=== PATIENT | female | born 1955 | race Caucasian/White ===

== ENCOUNTER 2016-12-24 16:01 | Emergency (ER) | payer OTHER ==
[2016-12-24 19:00] LABS: Hematocrit 40 % (35-47); Hemoglobin 13.7 g/dl (12.0-16.0); Mean Corpuscular HGB Conc 34 g/dl (31-36); Mean Corpuscular Hemoglobin 33 pg (27-31); Mean Corpuscular Volume 95 fL (80-97); Mean Platelet Volume 7 um3 (7.4-10.4); Red Blood Count 4.23 10^6/ul (4.0-5.4); Red Cell Distribution Width 14 % (10.5-15); White Blood Count 4.2 10^3/ul (3.5-10.8)
[2016-12-24 19:15] LABS: Albumin 4.2 g/dL (3.2-5.2); BUN/Creatinine Ratio 11.6 (8-20); Calcium 9.5 mg/dL (8.6-10.3); EGFR African American 76.7 (>60); EGFR Non-African American 59.6 (>60); Globulin 2.4 g/dL (2-4); Potassium 3.9 mmol/L (3.5-5.0); Total Bilirubin 0.3 mg/dL (0.2-1.0); Total Protein 6.6 g/dL (6.4-8.9)
--- NOTE | 2016-12-24 19:20 | RAD ---
Indication: Pain under the RIGHT breast radiating laterally to the back; rib pain. Vaginal bleeding. Comparison: August 26, 2015 CT chest. Technique: PA chest and 4 dedicated RIGHT rib views obtained. Report: Elevated lung volumes and both diffuse mild prominence of the interstitial markings and patchy rarefaction of the mid to upper lung zone interstitial markings. Solitary small linear metallic surgical clip or foreign body visualized at the RIGHT lung base corresponding with the anterior basal segment of the RIGHT lower lobe on the 2016 CT without concern. No focal pulmonary lesion, compelling alveolar consolidation, pleural effusion, pneumothorax. The heart, pulmonary vasculature, and mediastinal contours are unremarkable. No RIGHT rib fracture or focal osseous lesion evident. IMPRESSION: Stigmata of obstructive lung disease. No acute pulmonary or cardiac process evident. No RIGHT rib fracture evident.
[2016-12-24 19:43] LABS: Urine Bilirubin Negative (Negative); Urine Glucose Negative (Negative); Urine Nitrite Negative (Negative)
--- NOTE | 2016-12-24 20:18 | ED ---
GI/ HPI - HPI Summary HPI Summary: 61F presents with right side rib pain for a week and vaginal bleeding for 2 days. She has a history of cervical cancer that had chemo and radiation for. had rountine pap smear on . on Tuesday soaked a pad with bleeding during day. yesterday had some spotting. denies any pain. denies any dysuria, frequency. denies any abdominal pain, n/v/d/c. no history of prolapse. lifted a heavy box last week and felt a pop in ribs. denies any SOB. has history of COPD. no chance of STDs. - History of Current Complaint Chief Complaint: EDVaginalBleeding Time Seen by Provider: 12/24/16 18:29 Stated Complaint: RT SIDE RIB PAIN/VAGINAL BLEEDING Pain Intensity: 3 - Allergy/Home Medications Allergies/Adverse Reactions: Allergies Allergy/AdvReac Type Severity Reaction Status Date / Time No Known Allergies Allergy Verified 12/24/16 17:11 PMH/Surg Hx/FS Hx/Imm Hx Endocrine/Hematology History: Denies: Hx Anticoagulant Therapy GI History: Reports: Other GI Disorders - cervical cancer - Cancer History Cancer Type, Location and Year: CERVICAL Hx Chemotherapy: No Hx Radiation Therapy: No - Surgical History Surgery Procedure, Year, and Place: BREAST BIOPSY Infectious Disease History: No Infectious Disease History: Denies: Traveled Outside the [place] in Last 30 Days - Family History Known Family History: Positive: Cardiac Disease - Social History Alcohol Use: None Substance Use Type: Reports: None Smoking Status (MU): Heavy Every Day Tobacco Smoker Review of Systems Negative: Fever Positive: Other - right rib pain Negative: Shortness Of Breath Positive: Other - vaginal bleeding. Negative: Abdominal Pain All Other Systems Reviewed And Are Negative: Yes Physical Exam Triage Information Reviewed: Yes Vital Signs On Initial Exam: Initial Vitals Temp Pulse Resp BP Pulse Ox 98.7 F 88 20 147/86 98 12/24/16 16:11 12/24/16 16:11 12/24/16 16:11 12/24/16 16:11 12/24/16 16:11 Vital Signs Reviewed: Yes Appearance: Positive: Well-Appearing Skin: Positive: Warm, Dry Head/Face: Positive: Normal Head/Face Inspection Eyes: Positive: Normal, EOMI, LOVE, Conjunctiva Clear ENT: Positive: Normal ENT inspection, Pharynx normal, TMs normal Respiratory/Lung Sounds: Positive: Clear to Auscultation, Breath Sounds Present Cardiovascular: Positive: Normal, RRR Abdomen Description: Positive: Nontender, Soft Bowel Sounds: Positive: Present Pelvic Exam: Positive: external exam normal, other - friable tissue vaginal wall with petechia present in vaginal mucosa. no active bleeding. Negative: blood - Ariela Coma Scale Coma Scale Total: 15 Diagnostics - Vital Signs Vital Signs Temp Pulse Resp BP Pulse Ox 12/24/16 19:18 72 117/74 96 12/24/16 19:03 71 97 12/24/16 18:30 78 133/74 97 12/24/16 18:00 73 131/72 96 12/24/16 17:30 72 139/74 95 12/24/16 17:03 98.7 F 72 18 157/86 98 12/24/16 17:00 82 177/84 97 12/24/16 16:59 157/86 12/24/16 16:11 98.7 F 88 20 147/86 98 - Laboratory Lab Results: Lab Results 12/24/16 12/24/16 12/24/16 Range/Units 18:51 18:51 18:51 WBC 4.2 (3.5-10.8) 10^3/ul RBC 4.23 (4.0-5.4) 10^6/ul Hgb 13.7 (12.0-16.0) g/dl Hct 40 (35-47) % MCV 95 (80-97) fL MCH 33 H (27-31) pg MCHC 34 (31-36) g/dl RDW 14 (10.5-15) % Plt Count 241 (150-450) 10^3/ul MPV 7 L (7.4-10.4) um3 Neut % (Auto) 63.3 (38-83) % Lymph % (Auto) 25.8 (25-47) % [place] % (Auto) 8.0 (1-9) % Eos % (Auto) 1.7 (0-6) % Baso % (Auto) 1.2 (0-2) % Absolute Neuts (auto) 2.6 (1.5-7.7) 10^3/ul Absolute Lymphs (auto) 1.1 (1.0-4.8) 10^3/ul Absolute Monos (auto) 0.3 (0-0.8) 10^3/ul Absolute Eos (auto) 0.1 (0-0.6) 10^3/ul Absolute Basos (auto) 0.1 (0-0.2) 10^3/ul Absolute Nucleated RBC 0.01 10^3/ul Nucleated RBC % 0.2 INR (Anticoag Therapy) 0.91 (0.89-1.11) APTT 25.8 L (26.0-36.3) seconds Sodium 140 (133-145) mmol/L Potassium 3.9 (3.5-5.0) mmol/L Chloride 107 (101-111) mmol/L Carbon Dioxide 27 (22-32) mmol/L Anion Gap 6 (2-11) mmol/L BUN 11 (6-24) mg/dL Creatinine 0.95 (0.51-0.95) mg/dL Est GFR ( Amer) 76.7 (>60) Est GFR (Non-Af Amer) 59.6 (>60) BUN/Creatinine Ratio 11.6 (8-20) Glucose 105 H (70-100) mg/dL Calcium 9.5 (8.6-10.3) mg/dL Total Bilirubin 0.30 (0.2-1.0) mg/dL AST 14 (13-39) U/L ALT 9 (7-52) U/L Alkaline Phosphatase 68 (34-104) U/L Total Protein 6.6 (6.4-8.9) g/dL Albumin 4.2 (3.2-5.2) g/dL Globulin 2.4 (2-4) g/dL Albumin/Globulin Ratio 1.8 (1-3) Urine Color Urine Appearance Urine pH (5-9) Ur Specific [place] (1.010-1.030) Urine Protein (Negative) Urine Ketones (Negative) Urine Blood (Negative) Urine Nitrate (Negative) Urine Bilirubin (Negative) Urine Urobilinogen (Negative) Ur Leukocyte Esterase (Negative) Urine Glucose (Negative) 12/24/16 Range/Units 19:30 WBC (3.5-10.8) 10^3/ul RBC (4.0-5.4) 10^6/ul Hgb (12.0-16.0) g/dl Hct (35-47) % MCV (80-97) fL MCH (27-31) pg MCHC (31-36) g/dl RDW (10.5-15) % Plt Count (150-450) 10^3/ul MPV (7.4-10.4) um3 Neut % (Auto) (38-83) % Lymph % (Auto) (25-47) % [place] % (Auto) (1-9) % Eos % (Auto) (0-6) % Baso % (Auto) (0-2) % Absolute Neuts (auto) (1.5-7.7) 10^3/ul Absolute Lymphs (auto) (1.0-4.8) 10^3/ul Absolute Monos (auto) (0-0.8) 10^3/ul Absolute Eos (auto) (0-0.6) 10^3/ul Absolute Basos (auto) (0-0.2) 10^3/ul Absolute Nucleated RBC 10^3/ul Nucleated RBC % INR (Anticoag Therapy) (0.89-1.11) APTT (26.0-36.3) seconds Sodium (133-145) mmol/L Potassium (3.5-5.0) mmol/L Chloride (101-111) mmol/L Carbon Dioxide (22-32) mmol/L Anion Gap (2-11) mmol/L BUN (6-24) mg/dL Creatinine (0.51-0.95) mg/dL Est GFR ( Amer) (>60) Est GFR (Non-Af Amer) (>60) BUN/Creatinine Ratio (8-20) Glucose (70-100) mg/dL Calcium (8.6-10.3) mg/dL Total Bilirubin (0.2-1.0) mg/dL AST (13-39) U/L ALT (7-52) U/L Alkaline Phosphatase (34-104) U/L Total Protein (6.4-8.9) g/dL Albumin (3.2-5.2) g/dL Globulin (2-4) g/dL Albumin/Globulin Ratio (1-3) Urine Color Straw Urine Appearance Clear Urine pH 7.0 (5-9) Ur Specific [place] 1.004 L (1.010-1.030) Urine Protein Negative (Negative) Urine Ketones Negative (Negative) Urine Blood Negative (Negative) Urine Nitrate Negative (Negative) Urine Bilirubin Negative (Negative) Urine Urobilinogen Negative (Negative) Ur Leukocyte Esterase Negative (Negative) Urine Glucose Negative (Negative) Result Diagrams: 12/24/16 18:51 12/24/16 18:51 Lab Statement: Any lab studies that have been ordered have been reviewed, and results considered in the medical decision making process. - Radiology rib Xray Interpretation: No Acute Changes Radiology Interpretation Completed By: Radiologist SUSANNE Course/Dx - Course Course Of Treatment: 61F presents with right side rib pain for a week and vaginal bleeding for 2 days. She has a history of cervical cancer that had chemo and radiation for. had rountine pap smear on . on Tuesday soaked a pad with bleeding during day. yesterday had some spotting. denies any pain. denies any dysuria, frequency. denies any abdominal pain, n/v/d/c. no history of prolapse. lifted a heavy box last week and felt a pop in ribs. denies any SOB. has history of COPD. on exam tender over ribs 10-12. xray normal. vaginal exam friable vaginal tissue with small petechiae present with no active bleeding. labs h/h normal. patient understands and agrees with plan. - Diagnoses Differential Diagnoses - Female: Vaginitis, Other - rib contusion, fracture Provider Diagnoses: Rib pain on right side, Vaginal bleeding Discharge - Discharge Plan Condition: Good Disposition: HOME Referrals: Trell Baeza MD [Primary Care Provider] - Additional Instructions: Take Tylenol every [address] ice on ribs Follow up with clinical material handler Return to ED if develop any new or worsening symptoms
[2016-12-24 20:30] VITALS: BP 135/78
== END 2016-12-24 20:30 | disposition home or self-care (01) ==
LOC: ED 16:01
DX: R07.81 Pleurodynia (principal); N93.9 Abnormal uterine and vaginal bleeding, unspecified; Z72.0 Tobacco use; X50.0XXA Overexertion from strenuous movement or load, initial encounter; Y92.9 Unspecified place or not applicable; Z85.41 Personal history of malignant neoplasm of cervix uteri; Z92.21 Personal history of antineoplastic chemotherapy; Z92.3 Personal history of irradiation; J44.9 Chronic obstructive pulmonary disease, unspecified; Z82.49 Family history of ischemic heart disease and other diseases of the circulatory system
CPT/HCPCS: 36415; 80053; 81003; 85025; 85610; 85730; 99283

== ENCOUNTER 2017-02-06 11:14 | Emergency (ER) | payer SELFPAY ==
--- NOTE | 2017-02-06 13:04 | RAD ---
Indication: LEFT hip pain and tingling down the LEFT leg. Comparison: April 01, 2014 CT. Technique: AP pelvis and AP and frog-leg lateral views LEFT hip. Report: The LEFT hip is normally located and demonstrates preserved joint space. No LEFT proximal femur or pelvis fracture or pelvic joint diastases. Mild osteophytosis and subchondral sclerosis at the pubic symphysis. No suspicious focal osseous lesions evident. Mild peripheral vascular calcifications at the pelvis. Unremarkable soft tissue contours. IMPRESSION: No radiographic abnormality of the LEFT hip.
[2017-02-06 13:33] VITALS: BP 128/72
--- NOTE | 2017-02-06 17:35 | ED ---
Apryl Anderson SooYoung, scribed for Charles Guthrie MD on 02/06/17 at 1215 . Lower Extremity - HPI Summary HPI Summary: A 70 y/o F presents to ED with c/o LLE pain onset [employer]. Pt was at work at onset of L hip pain. Pain rated as 0 out of 10 at bedside. She took 4 Ibuprofen to mild relief prior to arrival. Pt also states getting leg cramps at night. 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 Onset/Duration: Still Present Severity Initially: Moderate Severity Currently: Mild Pain Intensity: 2 Pain Scale Used: 0-10 Numeric Timing: Constant Location: Is Discrete @ - L hip Alleviating Factor(s): OTC Meds - Allergies/Home Medications Allergies/Adverse Reactions: Allergies Allergy/AdvReac Type Severity Reaction Status Date / Time No Known Allergies Allergy Verified 12/24/16 17:11 PMH/Surg Hx/FS Hx/Imm Hx Previously Healthy: No Endocrine/Hematology History: Denies: Hx Anticoagulant Therapy GI History: Reports: Other GI Disorders - cervical cancer - Cancer History Cancer Type, Location and Year: CERVICAL Hx Chemotherapy: No Hx Radiation Therapy: No - Surgical History Surgery Procedure, Year, and Place: BREAST BIOPSY Infectious Disease History: No Infectious Disease History: Denies: Traveled Outside the [place] in Last 30 Days - Family History Known Family History: Positive: Cardiac Disease, Other - neg: breast CA - Social History Occupation: Unemployed - [employer] Lives: Alone Alcohol Use: None Hx Substance Use: No Substance Use Type: Reports: None Hx Tobacco Use: Yes Smoking Status (MU): Heavy Every Day Tobacco Smoker Review of Systems Negative: Fever Positive: Arthralgia - L hip pain All Other Systems Reviewed And Are Negative: Yes Physical Exam - Summary Physical Exam Summary: VITAL SIGNS: Reviewed. GENERAL: Patient is a well-developed and nourished FEMALE who is lying comfortable in the stretcher. Patient is not in any acute respiratory distress. HEAD AND FACE: No signs of trauma. No ecchymosis, hematomas or skull depressions. No sinus tenderness. EYES: PERRLA, EOMI x 2, No injected conjunctiva, no nystagmus. EARS: Hearing grossly intact. Ear canals and tympanic membranes are within normal limits. MOUTH: Oropharynx within normal limits. NECK: Supple, trachea is midline, no adenopathy, no JVD, no carotid bruit, no c- spine tenderness, neck with full ROM. CHEST: Symmetric, no tenderness at palpation LUNGS: Clear to auscultation bilaterally. No wheezing or crackles. CVS: Regular rate and rhythm, S1 and S2 present, no murmurs or gallops appreciated. ABDOMEN: Soft, non-tender. No signs of distention. No rebound, no guarding, and no masses palpated. Bowel sounds are normal. EXTREMITIES: FROM in all major joints, no edema, no cyanosis or clubbing. NEURO: Alert and oriented x 3. No acute neurological deficits. Speech is normal and follows commands. SKIN: Dry and warm Triage Information Reviewed: Yes Vital Signs On Initial Exam: Initial Vitals Temp Pulse Resp BP Pulse Ox 97.8 F 86 18 139/80 98 02/06/17 11:31 02/06/17 11:31 02/06/17 11:31 02/06/17 11:31 02/06/17 11:31 Vital Signs Reviewed: Yes Diagnostics - Vital Signs Vital Signs Temp Pulse Resp BP Pulse Ox 02/06/17 11:31 97.8 F 86 18 139/80 98 - Laboratory Lab Statement: Any lab studies that have been ordered have been reviewed, and results considered in the medical decision making process. - Radiology L HIP XR Xray Interpretation: No Acute Changes - No radiographic abnormality of L hip. ED physician has reviewed this radiology report and agrees. Radiology Interpretation Completed By: Radiologist Re-Evaluation - Re-Evaluation 1 Re-Evaluation Time: 13:29 Change: Improved Comment: Pt is ambulating, pain is resolved. Lower Extremity Course/Dx - Course Course Of Treatment: A 70 y/o F presents to ED with c/o LLE pain onset [employer]. Pt was at work at onset of L hip pain. Pain rated as 0 out of 10 at bedside. She took 4 Ibuprofen to mild relief prior to arrival. Pt also states getting leg cramps at night. Hip XR is negative. After taking Ibuprofen, pt is asymptomatic. I believe pt has arthritis with bursitis, therefore, will D/C home to f/u with PCP. Hemodynamically stable and A&Ox3. I discussed all the findings and test results with the patient. Patient was instructed to return to the emergency room immediately if any of the symptoms return or worsens. Plan of care was discussed with the patient and understands and agrees. All questions were answered at patient satisfaction. There were no further complaints or concerns. - Diagnoses Differential Diagnosis/HQI/PQRI: Positive: Arthritis, Bursitis, Fracture (Closed ), Sprain, Strain Provider Diagnoses: Left hip pain Discharge - Discharge Plan Condition: Stable Disposition: HOME Prescriptions: Naproxen TAB* [Naprosyn 250 mg TAB*] 500 mg PO Q8H PRN #220 tab PRN Reason: Pain Patient Education Materials: Hip Pain (ED), Naproxen (By mouth) Referrals: Trell Baeza MD [Primary Care Provider] - 2 Days Additional Instructions: Follow up with your primary care provider in 2 days. Please return to the ED if you experience new or worsening symptoms. The documentation as recorded by the Apryl gonzales SooYoung accurately reflects the service I personally performed and the decisions made by me, Charles Guthrie MD.
== END 2017-02-06 13:32 | disposition home or self-care (01) ==
LOC: ED 11:14
DX: M25.552 Pain in left hip (principal); F17.210 Nicotine dependence, cigarettes, uncomplicated; Z85.41 Personal history of malignant neoplasm of cervix uteri
CPT/HCPCS: 99282

== ENCOUNTER 2017-03-30 07:30 | Emergency (ER) | payer OTHER ==
[2017-03-30 09:00] LABS: Hematocrit 44 % (35-47); Hemoglobin 14.9 g/dl (12.0-16.0); Mean Corpuscular HGB Conc 34 g/dl (31-36); Mean Corpuscular Hemoglobin 33 pg (27-31); Mean Corpuscular Volume 97 fL (80-97); Mean Platelet Volume 6 um3 (7.4-10.4); Red Blood Count 4.56 10^6/ul (4.0-5.4); Red Cell Distribution Width 14 % (10.5-15); White Blood Count 4.1 10^3/ul (3.5-10.8)
[2017-03-30 09:07] LABS: Urine Bacteria 1+ (Absent); Urine Bilirubin Negative (Negative); Urine Glucose Negative (Negative); Urine Nitrite Negative (Negative)
[2017-03-30 09:16] LABS: Albumin 4.3 g/dL (3.2-5.2); BUN/Creatinine Ratio 16.5 (8-20); C Reactive Protein 3.15 mg/L (< 5.00); Calcium 9.9 mg/dL (8.6-10.3); EGFR African American 87.2 (>60); EGFR Non-African American 67.8 (>60); Globulin 2.6 g/dL (2-4); Potassium 4.2 mmol/L (3.5-5.0); Total Bilirubin 0.5 mg/dL (0.2-1.0); Total Protein 6.9 g/dL (6.4-8.9)
--- NOTE | 2017-03-30 10:44 | RAD ---
Indication: Hematuria. Real-time sonography of the kidneys was performed. The right kidney measures 9.9 x 4.2 x 4.9 cm. The left kidney measures 9.5 x 5.3 x 4.5 cm. No hydronephrosis in either kidney is noted. No focal masses are noted. Incidentally noted is cholelithiasis. IMPRESSION: No hydronephrosis in either kidney.
--- NOTE | 2017-03-30 10:45 | RAD ---
Indication: Vaginal bleeding. History of cervical cancer. Real-time sonography of the pelvis was performed. The uterus measures 3.6 x 3.0 x 4.0 cm. Heterogeneous echotexture is noted. Endometrial echo measures 4 mm. The right ovary measures 15 x 10 x 8 mm. Left ovary measures 15 x 11 x 15 mm. Free fluid is noted surrounding the left ovary. IMPRESSION: Heterogeneous echotexture. Free fluid surrounds the left adnexa.
--- NOTE | 2017-03-30 12:05 | ED ---
Ruthann Anderson Edward, scribed for Hugo Baptiste MD on 03/30/17 at 0739 . GI/ HPI - HPI Summary HPI Summary: 61 y/o female presents to the ED c/o vaginal bleeding starting yesterday. Last night the pt c/o spotting. This morning the pt tried to urinate and long, skinny clots of blood came out. Symptoms not aggravated or alleviated with anything. Associated sx: suprapubic cramping. Denies fevers/chills. PMHx cervical cancer (2 years ago), treated with chemo. - History of Current Complaint Stated Complaint: BLOOD IN URINE, VAG BLEEDING Hx Obtained From: Patient Onset/Duration: Started Days Ago Timing: Intermittent Location of Pain: Suprapubic Pain Characteristics: Cramping Associated Signs and Symptoms: Positive: Other: - vaginal bleeding - Allergy/Home Medications Allergies/Adverse Reactions: Allergies Allergy/AdvReac Type Severity Reaction Status Date / Time No Known Allergies Allergy Verified 12/24/16 17:11 Home Medications: Home Medications Cyclobenzaprine TAB* [Flexeril 10 MG TAB*] 5 mg PO Q8HR PRN 03/30/17 [History Confirmed 03/30/17] Cyclobenzaprine TAB* [Flexeril 10 MG TAB*] 10 mg PO BEDTIME PRN 03/30/17 [ History Confirmed 03/30/17] Ibuprofen TAB* [Advil TAB*] 1,000 mg PO QAM 03/30/17 [History Confirmed 03/30/17 ] PMH/Surg Hx/FS Hx/Imm Hx Previously Healthy: No Endocrine/Hematology History: Denies: Hx Anticoagulant Therapy GI History: Reports: Other GI Disorders - cervical cancer - Cancer History Cancer Type, Location and Year: CERVICAL Hx Chemotherapy: No Hx Radiation Therapy: No - Surgical History Surgery Procedure, Year, and Place: BREAST BIOPSY - Family History Known Family History: Positive: Cardiac Disease, Other - neg: breast CA - Social History Alcohol Use: None Hx Substance Use: No Substance Use Type: Reports: None Hx Tobacco Use: Yes Smoking Status (MU): Heavy Every Day Tobacco Smoker Review of Systems Constitutional: Negative Eyes: Negative ENT: Negative Cardiovascular: Negative Respiratory: Negative Gastrointestinal: Negative Positive: other - cramping, spotting Musculoskeletal: Negative Skin: Negative Neurological: Negative Psychological: Normal All Other Systems Reviewed And Are Negative: Yes Physical Exam - Summary Physical Exam Summary: Pelvic exam: Vaginal mucosa near the cervix is friable, with small amounts of dark blood. No active bleeding. No blood from the os. Nontender Triage Information Reviewed: Yes Vital Signs On Initial Exam: Initial Vitals Temp Pulse Resp BP Pulse Ox 98.6 F 105 19 117/102 94 03/30/17 07:32 03/30/17 07:32 03/30/17 07:32 03/30/17 07:32 03/30/17 07:32 Vital Signs Reviewed: Yes Appearance: Positive: Well-Appearing, No Pain Distress Skin: Positive: Warm, Skin Color Reflects Adequate Perfusion, Dry Head/Face: Positive: Normal Head/Face Inspection Eyes: Positive: EOMI, LOVE ENT: Positive: Normal ENT inspection Neck: Positive: Supple, Nontender Respiratory/Lung Sounds: Positive: Clear to Auscultation, Breath Sounds Present Cardiovascular: Positive: RRR Abdomen Description: Positive: Nontender, Soft Bowel Sounds: Positive: Present Musculoskeletal: Positive: Normal, Strength/ROM Intact Neurological: Positive: Normal, Sensory/Motor Intact, Alert, Oriented to Person Place, Time Psychiatric: Positive: Affect/Mood Appropriate Diagnostics - Vital Signs Vital Signs Temp Pulse Resp BP Pulse Ox 03/30/17 07:32 98.6 F 105 19 117/102 94 - Laboratory Lab Results: Lab Results 03/30/17 03/30/17 03/30/17 Range/Units 08:25 08:50 08:50 WBC (3.5-10.8) 10^3/ul RBC (4.0-5.4) 10^6/ul Hgb (12.0-16.0) g/dl Hct (35-47) % MCV (80-97) fL MCH (27-31) pg MCHC (31-36) g/dl RDW (10.5-15) % Plt Count (150-450) 10^3/ul MPV (7.4-10.4) um3 Neut % (Auto) (38-83) % Lymph % (Auto) (25-47) % [place] % (Auto) (1-9) % Eos % (Auto) (0-6) % Baso % (Auto) (0-2) % Absolute Neuts (auto) (1.5-7.7) 10^3/ul Absolute Lymphs (auto) (1.0-4.8) 10^3/ul Absolute Monos (auto) (0-0.8) 10^3/ul Absolute Eos (auto) (0-0.6) 10^3/ul Absolute Basos (auto) (0-0.2) 10^3/ul Absolute Nucleated RBC 10^3/ul Nucleated RBC % INR (Anticoag Therapy) 0.90 (0.77-1.02) APTT 26.1 (26.0-36.3) seconds Sodium 139 (133-145) mmol/L Potassium 4.2 (3.5-5.0) mmol/L Chloride 109 (101-111) mmol/L Carbon Dioxide 24 (22-32) mmol/L Anion Gap 6 (2-11) mmol/L BUN 14 (6-24) mg/dL Creatinine 0.85 (0.51-0.95) mg/dL Est GFR ( Amer) 87.2 (>60) Est GFR (Non-Af Amer) 67.8 (>60) BUN/Creatinine Ratio 16.5 (8-20) Glucose 88 (70-100) mg/dL Calcium 9.9 (8.6-10.3) mg/dL Total Bilirubin 0.50 (0.2-1.0) mg/dL AST 17 (13-39) U/L ALT 11 (7-52) U/L Alkaline Phosphatase 72 (34-104) U/L C-Reactive Protein 3.15 (< 5.00) mg/L Total Protein 6.9 (6.4-8.9) g/dL Albumin 4.3 (3.2-5.2) g/dL Globulin 2.6 (2-4) g/dL Albumin/Globulin Ratio 1.7 (1-3) Urine Color Yellow Urine Appearance Cloudy Urine pH 6.0 (5-9) Ur Specific [place] 1.008 L (1.010-1.030) Urine Protein 1+(30 mg/dl) H (Negative) Urine Ketones Negative (Negative) Urine Blood 3+ H (Negative) Urine Nitrate Negative (Negative) Urine Bilirubin Negative (Negative) Urine Urobilinogen Negative (Negative) Ur Leukocyte Esterase Negative (Negative) Urine WBC (Auto) Trace(0-5/hpf) (Absent) Urine RBC (Auto) 3+(>10/hpf) H (Absent) Ur Squamous Epith Cells Present H (Absent) Urine Bacteria 1+ H (Absent) Urine Glucose Negative (Negative) 03/30/17 Range/Units 08:50 WBC 4.1 (3.5-10.8) 10^3/ul RBC 4.56 (4.0-5.4) 10^6/ul Hgb 14.9 (12.0-16.0) g/dl Hct 44 (35-47) % MCV 97 (80-97) fL MCH 33 H (27-31) pg MCHC 34 (31-36) g/dl RDW 14 (10.5-15) % Plt Count 245 (150-450) 10^3/ul MPV 6 L (7.4-10.4) um3 Neut % (Auto) 71.7 (38-83) % Lymph % (Auto) 18.5 L (25-47) % [place] % (Auto) 7.1 (1-9) % Eos % (Auto) 1.7 (0-6) % Baso % (Auto) 1.0 (0-2) % Absolute Neuts (auto) 2.9 (1.5-7.7) 10^3/ul Absolute Lymphs (auto) 0.8 L (1.0-4.8) 10^3/ul Absolute Monos (auto) 0.3 (0-0.8) 10^3/ul Absolute Eos (auto) 0.1 (0-0.6) 10^3/ul Absolute Basos (auto) 0 (0-0.2) 10^3/ul Absolute Nucleated RBC 0 10^3/ul Nucleated RBC % 0 INR (Anticoag Therapy) (0.77-1.02) APTT (26.0-36.3) seconds Sodium (133-145) mmol/L Potassium (3.5-5.0) mmol/L Chloride (101-111) mmol/L Carbon Dioxide (22-32) mmol/L Anion Gap (2-11) mmol/L BUN (6-24) mg/dL Creatinine (0.51-0.95) mg/dL Est GFR ( Amer) (>60) Est GFR (Non-Af Amer) (>60) BUN/Creatinine Ratio (8-20) Glucose (70-100) mg/dL Calcium (8.6-10.3) mg/dL Total Bilirubin (0.2-1.0) mg/dL AST (13-39) U/L ALT (7-52) U/L Alkaline Phosphatase (34-104) U/L C-Reactive Protein (< 5.00) mg/L Total Protein (6.4-8.9) g/dL Albumin (3.2-5.2) g/dL Globulin (2-4) g/dL Albumin/Globulin Ratio (1-3) Urine Color Urine Appearance Urine pH (5-9) Ur Specific [place] (1.010-1.030) Urine Protein (Negative) Urine Ketones (Negative) Urine Blood (Negative) Urine Nitrate (Negative) Urine Bilirubin (Negative) Urine Urobilinogen (Negative) Ur Leukocyte Esterase (Negative) Urine WBC (Auto) (Absent) Urine RBC (Auto) (Absent) Ur Squamous Epith Cells (Absent) Urine Bacteria (Absent) Urine Glucose (Negative) Result Diagrams: 03/30/17 08:50 03/30/17 08:50 Lab Statement: Any lab studies that have been ordered have been reviewed, and results considered in the medical decision making process. - Ultrasound No standard instances Ultrasound Interpretation: No Acute Changes - ABD/BLADDER US - No hydronephrosis in either kidney. Ultrasound Interpretation Completed By: Radiologist - ED PHYSICIAN REVIEWS AND AGREES - Additional Comments Diagnostic Additional Comments: TRANSVAGINAL US - Heterogeneous echotexture. Free fluid surrounds the left adnexa. GIGU Course/Dx - Course Course Of Treatment: THE U/S DISCUSSED WITH RADIOLOGY; THE FLUID DOES NOT APPEAR TO BE BLOOD. WILL TREAT THE HEMATURIA A POSSIBLE SOURCE OF THE BLOOD. WILL NEED PMD F/U TO ENSURE URINE CLEARS OF BLOOD TO DETERMINE IF SHE NEEDS FURTHER HEMATURIA WORK UP. THE SOURCE OF THE BLOOD IS POSSIBLY THE FRIABLE MUCOSA NEAR THE CERVIX. THERE IS NO ACTIVE BLEEDING. PATIENT DENIES PAIN. SHE WILL F/U WITH HER CANCER PHYSICIAN, DR DICKEY. RETURN TO ED IF WORSE. - Diagnoses Provider Diagnoses: Abnormal vaginal bleeding, Hematuria Discharge - Discharge Plan Condition: Stable Disposition: HOME Prescriptions: Sulfamethox/Trimethoprim DS* [Bactrim DS 800/160 TAB*] 1 tab PO BID #14 tab Patient Education Materials: Hematuria (ED) Referrals: Trell Baeza MD [Primary Care Provider] - Additional Instructions: FOLLOW UP WITH YOUR PRIMARY CARE DOCTOR AND DR DICKEY FOR YOUR VAGINAL BLEEDING AND BLOOD IN YOUR URINE. THERE WAS SOME FRIABLE VAGINAL MUCOSA NEAR YOUR CERVIX WHICH MAY BE THE CAUSE OF THE BLEEDING. THERE WAS NO ACTIVE BLEEDING SEEN ON EXAM. RETURN TO THE EMERGENCY DEPARTMENT FOR ANY WORSENING OF YOUR CONDITION; EXCESSIVE BLEEDING, FEVER, YOU FEEL ILL, YOU FEEL LIGHTHEADED, PAIN OR QUESTIONS OR CONCERNS. The documentation as recorded by the Ruthann gonzales Edward accurately reflects the service I personally performed and the decisions made by me, Hugo Baptiste MD.
[2017-03-30 12:24] VITALS: BP 114/96
== END 2017-03-30 12:23 | disposition home or self-care (01) ==
LOC: ED 07:30
DX: N93.9 Abnormal uterine and vaginal bleeding, unspecified (principal); R31.9 Hematuria, unspecified; Z85.41 Personal history of malignant neoplasm of cervix uteri; F17.210 Nicotine dependence, cigarettes, uncomplicated
CPT/HCPCS: 36415; 76770; 76830; 80053; 81003; 81015; 85025; 85610; 85730; 86140; 87086; 99283

== ENCOUNTER 2017-04-05 09:19 | Emergency (ER) | payer OTHER ==
[2017-04-05] MEDS ORDERED: Ondansetron INJ* 2 MG/ML VIAL IV ONE (09:44)
[2017-04-05] MEDS ORDERED: NS 0.9% 1000 ML* 1,000 ML IV ONE ×2 (09:44→11:40)
[2017-04-05] MEDS ORDERED: Ketorolac INJ* 30 MG/ML 1 ML VIAL IV ONE (09:44)
[2017-04-05 10:12] LABS: Hematocrit 42 % (35-47); Hemoglobin 14.2 g/dl (12.0-16.0); Mean Corpuscular HGB Conc 34 g/dl (31-36); Mean Corpuscular Hemoglobin 33 pg (27-31); Mean Corpuscular Volume 97 fL (80-97); Mean Platelet Volume 7 um3 (7.4-10.4); Red Blood Count 4.31 10^6/ul (4.0-5.4); Red Cell Distribution Width 14 % (10.5-15); White Blood Count 7.2 10^3/ul (3.5-10.8)
[2017-04-05 10:24] LABS: Albumin 4.4 g/dL (3.2-5.2); BUN/Creatinine Ratio 13.8 (8-20); C Reactive Protein 3.72 mg/L (< 5.00); Calcium 9.7 mg/dL (8.6-10.3); EGFR African American 56.9 (>60); EGFR Non-African American 44.2 (>60); Globulin 2.6 g/dL (2-4); Total Bilirubin 0.4 mg/dL (0.2-1.0)
[2017-04-05] MEDS ORDERED: Orphenadrine Citrate IV* 30 MG/ML 2 ML VIAL IV ONE (10:54)
--- NOTE | 2017-04-05 10:54 | ED ---
Nausea/Vomiting/Diarrhea HPI - HPI Summary HPI Summary: 61 female presents to ED with complaints of nausea, vomiting/dry heaves and diarrhea that began this morning around 5am. States she vomited once, has not vomited since. Denies blood. Seen last week diagnosed with dyruria/uti and treated with bactrim. Those symptoms have since improved. Denies fever/chills, recent travel and take out food. Patient states she was taking aleve and ibuprofen for her leg pain intermittently. States leg pain has been ongoing for the past month, diagnosed with sciatica given muscle relaxer and had relief however it only used to be in right side and now it is bilateral. Has been out of muscle relaxer. Patient is able to walk and bear weight however she can not walk long distances without pain. Denies chest pain/sob. No urinary or genitalia symptoms. States she has a dull aching cramping pain in abdomen diffusely. PMHx significant for cervical cancer. Denies fever/chills, back pain. No other complaints. Denies coughing and congestion. no injury or trauma. - History of Current Complaint Chief Complaint: EDNauseaVomitDiarrh Stated Complaint: V/D/HIP PAIN Time Seen by Provider: 04/05/17 09:36 Hx Obtained From: Patient Onset/Duration: Sudden Onset, Lasting Hours, Still Present Severity Initially: Moderate Severity Currently: Mild Pain Intensity: 1 Pain Scale Used: 0-10 Numeric Location: Diffuse - abdomen Character: Cramping Aggravating Factor(s): Nothing Nausea/Vomiting Presence: Nauseated, Vomiting - x1, dry heaves since Nausea/Vomiting Duration: 0-12 hours Vomiting Characteristics: Retching, Bilious Diarrhea Presence: Yes Diarrhea Frequency: Every 3-4 hours Diarrhea Duration: 0-12 hours Diarrhea Characteristics: Watery - Allergies/Home Medications Allergies/Adverse Reactions: Allergies Allergy/AdvReac Type Severity Reaction Status Date / Time No Known Allergies Allergy Verified 04/05/17 09:44 PMH/Surg Hx/FS Hx/Imm Hx Endocrine/Hematology History: Denies: Hx Anticoagulant Therapy Cardiovascular History: Denies: Hx Hypertension Respiratory History: Denies: Hx Asthma GI History: Reports: Other GI Disorders - cervical cancer - Cancer History Cancer Type, Location and Year: CERVICAL Hx Chemotherapy: No Hx Radiation Therapy: No - Surgical History Surgery Procedure, Year, and Place: BREAST BIOPSY - Immunization History Immunizations Up to Date: Yes Infectious Disease History: No Infectious Disease History: Denies: Traveled Outside the [place] in Last 30 Days - Family History Known Family History: Positive: Cardiac Disease, Other - neg: breast CA - Social History Alcohol Use: None Hx Substance Use: No Substance Use Type: Reports: None Hx Tobacco Use: Yes Smoking Status (MU): Heavy Every Day Tobacco Smoker Review of Systems Constitutional: Negative Cardiovascular: Negative Respiratory: Negative Positive: Abdominal Pain, Vomiting, Diarrhea, Nausea Positive: Arthralgia, Myalgia - bilateral legs Neurological: Negative All Other Systems Reviewed And Are Negative: Yes Physical Exam Triage Information Reviewed: Yes Vital Signs On Initial Exam: Initial Vitals Temp Pulse Resp BP Pulse Ox 97.7 F 110 20 133/102 100 04/05/17 09:30 04/05/17 09:30 04/05/17 09:30 04/05/17 09:30 04/05/17 09:30 tachycardia noted HR improved to 79 and BP 135/71 Vital Signs Reviewed: Yes Appearance: Positive: Well-Appearing, No Pain Distress, Well-Nourished Skin: Positive: Warm, Skin Color Reflects Adequate Perfusion, Dry. Negative: Cold, Cyanosis @, Diaphoretic, Jaundiced, Erythema @ Head/Face: Positive: Normal Head/Face Inspection Eyes: Positive: Conjunctiva Clear ENT: Positive: Hearing grossly normal, Pharynx normal, TMs normal Neck: Positive: Supple, Nontender Respiratory/Lung Sounds: Positive: Clear to Auscultation, Breath Sounds Present. Negative: Rales, Rhonchi, Wheezes Cardiovascular: Positive: Normal, RRR, Pulses are Symmetrical in both Upper and Lower Extremities. Negative: Murmur, Rub Abdomen Description: Positive: Nontender, No Organomegaly, Soft. Negative: CVA Tenderness (R), CVA Tenderness (L), Distended, Guarding, McBur[place]'s Point Tenderness, Peritoneal Signs Bowel Sounds: Positive: Present, Hyperactive Musculoskeletal: Positive: Normal, Strength/ROM Intact, Pain @ - with movement of bl legs starting in hips/thighs, sore to palpation. Negative: Limited @, Interruption @ Neurological: Positive: Normal, Sensory/Motor Intact, Alert, Oriented to Person Place, Time, Reflexes Intact, NV Bundle Intact Distally, Normal Gait - [place] Coma Scale Coma Scale Total: 15 Diagnostics - Vital Signs Vital Signs Temp Pulse Resp BP Pulse Ox 04/05/17 09:30 97.7 F 110 20 133/102 100 - Laboratory Lab Results: Lab Results 04/05/17 04/05/17 04/05/17 Range/Units 09:53 09:53 09:53 WBC 7.2 (3.5-10.8) 10^3/ul RBC 4.31 (4.0-5.4) 10^6/ul Hgb 14.2 (12.0-16.0) g/dl Hct 42 (35-47) % MCV 97 (80-97) fL MCH 33 H (27-31) pg MCHC 34 (31-36) g/dl RDW 14 (10.5-15) % Plt Count 291 (150-450) 10^3/ul MPV 7 L (7.4-10.4) um3 Neut % (Auto) 84.3 H (38-83) % Lymph % (Auto) 7.8 L (25-47) % [place] % (Auto) 6.6 (1-9) % Eos % (Auto) 0.7 (0-6) % Baso % (Auto) 0.6 (0-2) % Absolute Neuts (auto) 6.1 (1.5-7.7) 10^3/ul Absolute Lymphs (auto) 0.6 L (1.0-4.8) 10^3/ul Absolute Monos (auto) 0.5 (0-0.8) 10^3/ul Absolute Eos (auto) 0 (0-0.6) 10^3/ul Absolute Basos (auto) 0 (0-0.2) 10^3/ul Absolute Nucleated RBC 0 10^3/ul Nucleated RBC % 0 Sodium 134 (133-145) mmol/L Potassium Pending Chloride 102 (101-111) mmol/L Carbon Dioxide 25 (22-32) mmol/L Anion Gap Pending BUN 17 (6-24) mg/dL Creatinine 1.23 H (0.51-0.95) mg/dL Est GFR ( Amer) 56.9 (>60) Est GFR (Non-Af Amer) 44.2 (>60) BUN/Creatinine Ratio 13.8 (8-20) Glucose 95 (70-100) mg/dL Lactic Acid 1.5 (0.5-2.0) mmol/L Calcium 9.7 (8.6-10.3) mg/dL Magnesium Pending Total Bilirubin 0.40 (0.2-1.0) mg/dL AST Pending ALT 12 (7-52) U/L Alkaline Phosphatase 73 (34-104) U/L C-Reactive Protein 3.72 (< 5.00) mg/L Total Protein 7.0 (6.4-8.9) g/dL Albumin 4.4 (3.2-5.2) g/dL Globulin 2.6 (2-4) g/dL Albumin/Globulin Ratio 1.7 (1-3) Lipase 21 (11.0-82.0) U/L Result Diagrams: 04/05/17 09:53 04/05/17 09:53 Lab Statement: Any lab studies that have been ordered have been reviewed, and results considered in the medical decision making process. - Radiology hips/pelvis Xray Interpretation: No Acute Changes Radiology Interpretation Completed By: Radiologist - and myself Re-Evaluation - Re-Evaluation First Eval Re-Evaluation Time: 11:30 Change: Improved - feeling better after medication Second Eval Re-Evaluation Time: 12:25 Change: Improved - feeling much better, ate applesauce. no other complaints. asymptomatic. updated on all labs and imaging results. educated and understands. will be d/c Naus/Vom/Diarrhea Course/Dx - Course Course Of Treatment: labs obtained and unremarkable other than elevated Cr and potassium. Mg slightly low and replaced while in ED, oral medication. was on telemetry and normal vitals/leads throughout stay. xrays obtained hips/pelvis showing osteoarthritis and osteoporosos. urinalysis obtained, negative. given toradol and norflex. had relief. zofran for nausea. patient was unable to give a stool culture. did not have any episodes of dry heaving, vomiting or diarrhea while in ED. elevated Cr and Potassium, given 2L fluids. Patient was up, eating and feeling better without complaints. Toradol was given prior to being informed that patient was taking 4-5 ibuprofen/aleve at one time over the past couple of days, or else would have been discontinued. Appears that abuse of NSAIDs may have caused the acute increase Cr. Will have close follow up and instructed to have repeat blood work with PCP. Patient is aware of worsening signs and symptoms to watch out for. Discussed this with Dr Boykin who agrees with plan and states nothing more is required at time. Patient is currently asymptomatic. Encouraged fluids, zofran for nausea, BRAT diet, and refrain from NSAIDs while at home. given pain medication to help with arthritis/leg pain instead of NSAIDs for short term use. Abdominal discomfort and symptoms began before taking any more aleve and ibuprofen. Unknown if related to abuse of NSAIDs. No other concerns for other etiology at this time. Patient improved and ready to be d/c. Follow up PCP. - Differential Dx/Diagnosis Differential Diagnoses - Female: Constipation, Diverticulitis, Other - abdominal pain, gastsroenteritis, viral syndrome, nausea/vomiting, leg pain b/l , arthritis Provider Diagnoses: arthritis, leg pain b/l, nausea, vomiting, viral gastoenteritis Condition At Discharge: Stable Discharge - Discharge Plan Condition: Stable Disposition: HOME Prescriptions: HYDROcodone/ACETAMIN 5-325 MG* [[place] 5-325 TAB*] 1 tab PO Q6H PRN #6 tab MDD 2 PRN Reason: Pain Ondansetron ODT TAB* [Zofran 4 MG Odt TAB*] 4 mg PO Q6H PRN #8 tab.odt PRN Reason: Nausea Patient Education Materials: Acute Nausea and Vomiting (ED), Arthralgia (ED), Arthritis (ED) Referrals: Trell Baeza MD [Primary Care Provider] [place] [facility] [place]Medical Doctor] - Additional Instructions: Refrain from using ibuprofen and aleve as you were before. Take prescribed pain medication as directed for the next 2-3 days only as needed in replace of NSAIDs (advil and aleve) as you may have injured your kidneys, as discussed. Increase fluid intake. Bananas, rice, applesauce and toast for foods. Hyde diet. Zofran as needed for nausea. Rest. Recommend trying Physical therapy and water aerobics. Follow up with PCP within 5-7 days to ensure improvement and follow up on kidneys with repeat blood work. Any new or worsening symptoms or if symptoms continue please seek medical attention promptly and return, as discussed.
[2017-04-05 11:32] LABS: Magnesium 1.7 mg/dL (1.9-2.7)
[2017-04-05 11:33] LABS: Potassium 5.5 mmol/L (3.5-5.0)
--- NOTE | 2017-04-05 11:44 | RAD ---
HISTORY: Bilateral hip pain, worsening COMPARISONS: February 06, 2017 VIEWS: 5, Frontal view of the pelvis with frontal and frog-leg views of the right hip and of the left hip FINDINGS: Right: BONE DENSITY: Normal. BONES: There is no displaced fracture. JOINTS: There is mild osteoporosis of the right SI joint. ALIGNMENT: There is no dislocation. The alignment is anatomic. SOFT TISSUES: Unremarkable. Left: BONE DENSITY: Normal. BONES: There is no displaced fracture. JOINTS: There is mild osteoarthritis of the left SI joint. ALIGNMENT: There is no dislocation. The alignment is anatomic. SOFT TISSUES: Unremarkable. OTHER FINDINGS: None. IMPRESSION: SI JOINT OSTEOARTHRITIS. NO ACUTE OSSEOUS INJURY. IF SYMPTOMS PERSIST, RECOMMEND REPEAT IMAGING
[2017-04-05 11:52] LABS: Urine Bilirubin Negative (Negative); Urine Glucose Negative (Negative); Urine Nitrite Negative (Negative)
[2017-04-05] MEDS ORDERED: Magnesium Chloride EC TAB* 64 MG PO ONE (12:04)
[2017-04-05 13:20] VITALS: BP 00/00
== END 2017-04-05 13:19 | disposition home or self-care (01) ==
LOC: ED 09:19
DX: A08.4 Viral intestinal infection, unspecified (principal); R11.2 Nausea with vomiting, unspecified; M79.605 Pain in left leg; M79.604 Pain in right leg; M16.0 Bilateral primary osteoarthritis of hip; Z87.440 Personal history of urinary (tract) infections; Z85.41 Personal history of malignant neoplasm of cervix uteri; F17.210 Nicotine dependence, cigarettes, uncomplicated
CPT/HCPCS: 36415; 73523; 80053; 81003; 83605; 83690; 83735; 85025; 86140; 96361; 96374; 96375; 96376; 99283; A9270-GY; J1885; J2360; J2405

== ENCOUNTER 2017-09-27 15:24 | Emergency (ER) | payer OTHER ==
[2017-09-27 17:01] LABS: ABS Basophils 0.1 10^3/ul (0-0.2); ABS Eosinophils 0.1 10^3/ul (0-0.6); ABS Monocytes 0.4 10^3/ul (0-0.8); ABS Nucleated RBC 0 10^3/ul; Eosinophil % 1.5 % (0-6); Hematocrit 39 % (35-47); Hemoglobin 13.4 g/dl (12.0-16.0); Lymphocyte % 21.8 % (25-47); Mean Corpuscular HGB Conc 34 g/dl (31-36); Mean Corpuscular Hemoglobin 33 pg (27-31); Mean Corpuscular Volume 96 fL (80-97); Mean Platelet Volume 6.4 um3 (7.4-10.4); Nucleated Red Blood Cells % 0; Platelet Count 232 10^3/ul (150-450); Red Blood Count 4.09 10^6/ul (4.00-5.40); Red Cell Distribution Width 14 % (10.5-15); White Blood Count 4.5 10^3/ul (3.5-10.8)
[2017-09-27 17:09] LABS: INR 0.94 (0.77-1.02)
[2017-09-27 17:17] LABS: EGFR Non-African American 59.4 (>60)
[2017-09-27] MEDS ORDERED: cefTRIAXone(*) 1 GM in NS 0.9% 50 ML* 50 ML IVPB ONE (17:48)
[2017-09-27 17:55] LABS: Urine Appearance Cloudy
[2017-09-27 17:57] LABS: Urine Color Red
--- NOTE | 2017-09-27 18:26 | RAD ---
INDICATION: Hematuria, urinary retention. COMPARISON: Comparison is made with a prior CT of the abdomen and pelvis from July 18, 2017. TECHNIQUE: A CT scan of the abdomen and pelvis was performed without intravenous and without oral contrast. Contiguous axial sections were obtained from the lung bases through the symphysis pubis. Images were reconstructed in the coronal and sagittal planes. FINDINGS: There is mild dependent bilateral lower lobe subsegmental atelectasis. There is a small calcified nodule present in the right lung base measuring 6 mm in size. No pleural effusion is present. The liver and spleen are normal in size without significant focal abnormality on this noncontrast study. There are multiple calcified gallstones present. The gallbladder is not distended. No gallbladder thickening is seen. The pancreas appears to be within normal limits. The adrenal glands and kidneys are normal in size. No renal calculi or hydronephrosis is seen. No ureteral or bladder calculi are seen. There is a Grimaldo catheter within the urinary bladder. In addition there is increased density within the urinary bladder most consistent with hemorrhage and consistent with the patient's history of hematuria. The aorta is normal in caliber with moderate calcific plaque present. No significant enlarged retroperitoneal lymph nodes are seen. The stomach, small and large bowel appear nondistended. The appendix is within normal limits. There are several scattered diverticuli in the colon. There is no evidence for diverticulitis or colitis. The uterus is retroverted and normal in size. No free intraperitoneal air or fluid is seen. There is mixed density in the superior aspect of the sacrum on both sides possibly indicating a subacute stress fracture which is unchanged. IMPRESSION: 1. INCREASED DENSITY WITHIN THE URINARY BLADDER MOST CONSISTENT WITH HEMORRHAGE AND CONSISTENT WITH THE PATIENT'S HEMATURIA. CONSIDER AN OUTPATIENT CT UROGRAM FOR FURTHER EVALUATION. 2. CHOLELITHIASIS WITHOUT EVIDENCE FOR ACUTE CHOLECYSTITIS. 3. POSSIBLE SUBACUTE STRESS FRACTURE OF THE SACRUM. RECOMMEND CLINICAL CORRELATION.
[2017-09-27 21:15] LABS: Hematocrit 35 % (35-47); Hemoglobin 12.2 g/dl (12.0-16.0)
[2017-09-27 21:32] VITALS: BP 109/76
--- NOTE | 2017-09-27 21:55 | ED ---
Paul Anderson Rebecca, scribed for Uday Guerra MD on 09/27/17 at 1701 . GI/ HPI - HPI Summary HPI Summary: Pt is a 62 y/o F who presents to ED c/o urinary symptoms. Reports that starting today, she has been experiencing urinary retention, dysuria, and hematuria. States that the blood appeared to be regular blood with clots. Additionally c/o bilateral lower back pain. Associated pain was severe on triage, ranked 8/10 though on evaluation, she denies any pain. Denies fever, chills, and diaphoresis. PMHx cervical CA and UTIs, no PMHx kidney stones and she is not on blood thinners. - History of Current Complaint Chief Complaint: EDUrogenitalProblems Time Seen by Provider: 09/27/17 16:49 Stated Complaint: VAGINAL BLEEDING Hx Obtained From: Patient Onset/Duration: Still Present Severity: Severe - 8/10 Current Severity: None Pain Intensity: 8 - On triage Location of Pain: Other - Bilateral lower back Associated Signs and Symptoms: Positive: Back Pain, Hematuria, Dysuria. Negative: Fever Aggravating Factor(s): Nothing Alleviating Factor(s): Nothing - Allergy/Home Medications Allergies/Adverse Reactions: Allergies Allergy/AdvReac Type Severity Reaction Status Date / Time No Known Allergies Allergy Verified 04/05/17 09:44 PMH/Surg Hx/FS Hx/Imm Hx Endocrine/Hematology History: Denies: Hx Anticoagulant Therapy, Hx Diabetes Cardiovascular History: Denies: Hx Hypertension Respiratory History: Denies: Hx Asthma GI History: Reports: Other GI Disorders - cervical cancer History: Reports: Other Problems/Disorders - UTI - Cancer History Cancer Type, Location and Year: CERVICAL Hx Chemotherapy: No Hx Radiation Therapy: No - Surgical History Surgery Procedure, Year, and Place: BREAST BIOPSY, TUBAL Infectious Disease History: No Infectious Disease History: Denies: Traveled Outside the [place] in Last 30 Days - Family History Known Family History: Positive: Cardiac Disease, Other - neg: breast CA - Social History Alcohol Use: None Hx Substance Use: No Substance Use Type: Reports: None Hx Tobacco Use: Yes Smoking Status (MU): Heavy Every Day Tobacco Smoker Review of Systems Negative: Fever, Chills, Skin Diaphoresis Negative: Erythema Negative: Sore Throat Negative: Chest Pain Negative: Shortness Of Breath, Cough Negative: Abdominal Pain, Vomiting, Nausea Positive: dysuria, other - Urinary retention. Negative: hematuria Positive: Other - Bilateral low back pain (resolved). Negative: Edema Negative: Rash Neurological: Other - NEGATIVE: Dizziness All Other Systems Reviewed And Are Negative: Yes Physical Exam - Summary Physical Exam Summary: Constitutional: Well-developed, Well-nourished, Alert. (-) Distressed Skin: Warm, Dry HENT: Normocephalic; Atraumatic Eyes: Conjunctiva normal Neck: Musculoskeletal ROM normal neck. (-) JVD, (-) Stridor, (-) Tracheal deviation Cardio: Rhythm regular, rate normal, Heart sounds normal; Intact distal pulses; The pedal pulses are 2+ and symmetric. Radial pulses are 2+ and symmetric. (-) Murmur Pulmonary/Chest wall: Effort normal. (-) Respiratory distress, (-) Wheezes, (-) Rales Abd: Soft, donn blood is flowing freely from the guan, (-), epigastric tenderness, (-) Distension, (-) Guarding, (-) Rebound Musculoskeletal: (-) Edema, (-) CVA tenderness Lymph: (-) Cervical adenopathy Neuro: Alert, Oriented x3 Psych: Mood and affect Normal Triage Information Reviewed: Yes Vital Signs On Initial Exam: Initial Vitals Temp Pulse Resp BP Pulse Ox 98.3 F 115 18 171/87 97 09/27/17 15:25 09/27/17 15:25 09/27/17 15:25 09/27/17 15:25 09/27/17 15:25 Vital Signs Reviewed: Yes Diagnostics - Vital Signs Vital Signs Temp Pulse Resp BP Pulse Ox 09/27/17 15:25 98.3 F 115 18 171/87 97 - Laboratory Result Diagrams: 09/27/17 16:20 09/27/17 16:20 Lab Statement: Any lab studies that have been ordered have been reviewed, and results considered in the medical decision making process. - CT CT Abd/Pel CT Interpretation Completed By: Radiologist - 1. INCREASED DENSITY WITHIN THE URINARY BLADDER MOST CONSISTENT WITH HEMORRHAGE AND CONSISTENT WITH THE PATIENT' S HEMATURIA. CONSIDER AN OUTPATIENT CT UROGRAM FOR FURTHER EVALUATION. 2. CHOLELITHIASIS WITHOUT EVIDENCE FOR ACUTE CHOLECYSTITIS. 3. POSSIBLE SUBACUTE STRESS FRACTURE OF THE SACRUM. RECOMMEND CLINICAL CORRELATION. ED physician reviewed this report. Re-Evaluation - Re-Evaluation First Eval Re-Evaluation Time: 19:00 Comment: Pt continues to have dark red urine output. GIGU Course/Dx - Course Assessment/Plan: Pt is a 62 y/o F who presents to ED c/o urinary retention, dysuria, and hematuria with clots for today. Additionally c/o bilateral lower back pain. Associated pain was severe on triage, ranked 8/10 though on evaluation, she denies any pain. Denies fever, chills, and diaphoresis. PMHx cervical CA and UTIs, no PMHx kidney stones and she is not on blood thinners. Blood work and UA were done. Urine color is red, WBC is 2+, RBC is 3+ and bacteria is 2+CT Abd/Pel revealed increased density within the urinary bladder most consistent with hemorrhage, cholelithiasis, and possible subacute stress fracture of the sacrum. In the ED course, pt received Rocephin and urine cultures were sent. Discussed care of pt with Dr. Catherine Agustin who felt that without coverage, it would be unsafe to keep the pt at [facility] and recommended transfer. Began contacting [facility] about transfer at 1957. At 2099, she is accepted for transfer with the accepting physician being Dr. Mark Alatorre. Pt will be transferred with Dx of hematuria and urinary retention. She understands and agrees . - Diagnoses Provider Diagnoses: Hematuria, Urinary retention - Physician Notifications Discussed Care Of Patient With: Catherine Agustin Time Discussed With Above Provider: 19:30 Instructed by Provider To: Other - Discussed keeping the pt at [facility], but without available she felt this would be unsafe and recommended transfer. Discharge - Sign-Out/Discharge Documenting (check all that apply): Discharge/Admit/Transfer - Transfer - Discharge Plan Condition: Stable Disposition: TRANS HIGHER LVL OF CARE FAC Referrals: Trell Baeza MD [Primary Care Provider] - Consult Consult: Began contacting [facility] about transfer at 1957. At 2099, she is accepted for transfer with the accepting physician being Dr. Mark Alatorre. The documentation as recorded by the Paul gonzales Rebecca accurately reflects the service I personally performed and the decisions made by me, Uday Guerra MD.
== END 2017-09-27 21:45 | disposition short-term general hospital (02) ==
LOC: ED 15:24
DX: R31.9 Hematuria, unspecified (principal); R33.9 Retention of urine, unspecified; R30.0 Dysuria; M54.5 Low back pain; F17.200 Nicotine dependence, unspecified, uncomplicated; Z85.41 Personal history of malignant neoplasm of cervix uteri; Z87.440 Personal history of urinary (tract) infections
CPT/HCPCS: 36415; 74176; 80053; 81003; 85014; 85018; 85025; 85610; 85730; 86850; 86900; 86901; 87086; 96365; 99285; J0696